=== PATIENT | male | born 2005 | race Caucasian/White ===

== ENCOUNTER 2024-02-25 06:55 | Outpatient (CLI) | payer OTHER, SELFPAY ==
--- NOTE | 2024-02-25 07:15 | MR_ITS ---
[facility] [address] [facility] [address] Phone:?[phone] Fax:?[phone] Referring Physician Information: Petra Dietrich [address] [facility] [address] Phone:?[phone] Fax:?[phone] Patient:Aleksandr Rivera D.O.B:?2005 Sex:?Male Phone:?[phone] [facility] MRN:?[id number] Exam Date:?02/25/2024 EXAM: MRI of the RIGHT FINGER, without contrast CLINICAL INFORMATION: Male, 18 years old, with frisbee collision injury INDICATION: evaluate for UCL tear PRIOR SURGERY: None reported. PLAIN FILMS: Radiographs COMPARISONS: No prior MRIs available. TECHNICAL INFORMATION: Using a 1.5T MR scanner and a localizing surface coil: sagittals: PD, T2 coronals: PD, T2, T1, STIR axials: PD, T2, STIR SEDATION: None. CONTRAST: None. FINDINGS: Bones: Prominent appearance of marrow edema seen in the thumb metacarpal head predominantly volarly. No discrete fracture line. Joints: Intact throughout without pathologic narrowing or effusion. Tendons: Flexor and extensor tendons are intact, without rupture or tendinopathy, tenosynovitis or longitudinal splitting. Collateral ligaments: There is full-thickness disruption of the thumb MCP joint ulnar collateral ligament at the distal attachment on the base of the proximal phalanx, with proximal retraction (coronal series 5 image 9 & 10). There is interposition of the adductor pollicis aponeurosis between the torn ulnar collateral ligament in the MCP joint (coronal series 6.1 image 9). Moderate overlying soft tissue edema/hemorrhage. The radial collateral ligament is intact. The radial and ulnar collateral ligaments of the interphalangeal joint are intact. Soft tissues: Moderate soft tissue edema/swelling about the thumb MCP joint. IMPRESSION: 1. Full-thickness tearing and retraction of the thumb MCP joint ulnar collateral ligament with resulting Stener lesion. 2. Prominent marrow edema/contusion of the thumb metacarpal head, suggestive for osseous contusion. No discrete fracture line. 3. Moderate soft tissue edema/swelling about the thumb MCP joint. KME Electronically signed on 02/25/2024 12:14:00 PM by Shireen Medrano M.D.
--- NOTE | 2024-02-25 08:15 | MR_ITS ---
[facility] [address] [facility] [address] Phone:?[phone] Fax:?[phone] Referring Physician Information: Petra Dietrich [address] [facility] [address] Phone:?[phone] Fax:?[phone] Patient:Aleksandr Rivera D.O.B:?2005 Sex:?Male Phone:?[phone] [facility] MRN:?[id number] Exam Date:?02/25/2024 EXAM: MRI of the LEFT THUMB, without contrast CLINICAL INFORMATION: Male, 18 years old, with frisbee collision injury INDICATION: evaluate for UCL tear PRIOR SURGERY: None reported. PLAIN FILMS: Radiographs 02/15/2024 COMPARISONS: No prior MRIs available. TECHNICAL INFORMATION: Using a 1.5T MR scanner and a localizing surface coil: sagittals: PD, T2 coronals: PD, T2, T1, STIR axials: PD, T2, STIR SEDATION: None. CONTRAST: None. FINDINGS: Bones: Prominent appearance of marrow edema seen in the thumb metacarpal head trauma minimally volarly. No discrete fracture. Joints: Intact throughout without pathologic narrowing or effusion. Tendons: Flexor and extensor tendons are intact, without rupture or tendinopathy, tenosynovitis or longitudinal splitting. Collateral ligaments: Mild irregularity and heterogeneity of the thumb MCP joint ulnar collateral ligament distally (coronal series 6.1 image 7-5), without high- grade or full-thickness tearing. There is slightly attenuated and irregular appearance of the overlying adductor pollicis aponeurosis, in keeping with mild strain. No evidence for interposition of the aponeurosis between the ligament and the MCP joint, however. The radial collateral ligament of the thumb MCP joint is intact. The radial and ulnar collateral ligaments of the thumb IP joint are intact. Soft tissues: Mild soft tissue edema/inflammation about the thumb MCP joint. IMPRESSION: 1. Mild thumb adductor pollicis aponeurosis strain with mild sprain of the thumb MCP UCL distally, without high-grade tear or Stener lesion. 2. Prominent marrow edema/contusion of the thumb metacarpal head. No discrete fracture line. 3. Mild soft tissue edema/inflammation about the thumb MCP joint. KME Electronically signed on 02/25/2024 12:37:00 PM by Shireen Medrano M.D.
== END 2024-02-25 06:56 | disposition home or self-care (01) ==
PROVIDERS: Visit Provider Physician Assistant Surgical
DX: S63.641A Sprain of metacarpophalangeal joint of right thumb, initial encounter (principal); S63.622A Sprain of interphalangeal joint of left thumb, initial encounter; S63.602A Unspecified sprain of left thumb, initial encounter; S63.681A Other sprain of right thumb, initial encounter; S60.011A Contusion of right thumb without damage to nail, initial encounter; M25.441 Effusion, right hand
CPT/HCPCS: 73218

== ENCOUNTER 2024-12-09 09:03 | Outpatient (CLI) | payer OTHER, SELFPAY ==
--- NOTE | 2024-12-09 09:15 | CRLHL7_ITS ---
For Patients: As a result of the Century Cures Act, medical imaging exams and procedure reports are released immediately into your electronic medical record. You may view this report before your referring provider. If you have questions, please contact your health care provider. Indication: eval left hip labral tear ,LEFT HIP PAIN Comparison: 11/23/2024 Procedure : Informed consent was obtained. The site was marked. Time-out was performed. The skin of the left hip was cleansed with ChloraPrep. A sterile drape was placed. 8 cc of 1 percent lidocaine was administered for superficial anesthesia. Subsequently a 22 gauge spinal needle was introduced into the left hip joint under intermittent fluoroscopic guidance. Injection of 2 cc nonionic Omnipaque 240 contrast confirmed intra-articular location. Subsequently 11 cc of dilute gadolinium were injected. The needle was removed and hemostasis achieved with direct pressure. A dressing was placed. The patient tolerated the procedure well without immediate complication and was immediately sent to MRI for imaging. Total fluoroscopy time 15 seconds. Impression: Successful fluoroscopically guided left hip arthrogram for MRI. Dictated by Shmuel Pugh MD @ 12/09/2024 12:57:38 PM (Electronically Signed)
--- NOTE | 2024-12-09 10:15 | MR_ITS ---
[address] [address] Phone:?[phone] Fax:?[phone] Referring Physician Information: Raul Kent M.D. [address] [address] Phone:?[phone] Fax:?[phone] Patient:Aleksandr Rivera D.O.B:?2005 Sex:?Male Phone:?[phone] [facility] MRN:?[id number] Exam Date:?12/09/2024 EXAM: MR ARTHROGRAM of the LEFT HIP CLINICAL HISTORY: Ongoing left hip pain. Potential labral tear. COMPARISONS: Plain radiographs 11/23/2024. TECHNIQUE: MR sequences of the left hip: coronals: PD, T2, T1FS sagittals: PD, T2, T1FS axial obliques: PD axials: PD FS coronals of pelvis: T1, STIR This study was not available for interpretation until approximately 10:00 AM 12/14/2024. Sedation: None Contrast: Intra-articular gadolinium based contrast. The injection procedure is reported separately. FINDINGS: Pelvis osseous structures: Sacrum: No fracture or destructive osseous lesion is seen of the imaged portions of the sacrum. Sacroiliac joints: No convincing evidence of sacroiliitis of the imaged portions of the sacroiliac joints. Pubic rami: Unremarkable. Symphysis pubis: There is subchondral edema-like signal within the left pubic body adjacent to the symphysis pubis and subchondral edema-like signal within the right pubic body to a lesser extent. There is a left-sided secondary cleft sign. Labrum: Slitlike linear tear within the base of the left hip labrum from the 1 o'clock position through 2 o'clock position anterosuperiorly best seen on axial oblique images 12 through 14 and sagittal series 10 images 17 through 14. Hip joint: The presence of contrast reflects intra-articular injection. No discrete chondral loss is seen. No degenerative subchondral cystic change or degenerative subchondral edema-like signal is seen. Proximal femur: No fracture, osseous stress injury, avascular necrosis, or suspicious bone marrow signal abnormality is seen. Fibrocystic changes at the lateral femoral head neck junction. Marked left femoral cam morphology with a femoral alpha angle of 93 degrees at the 12 o'clock position superiorly best seen on coronal series 7 image 17. Acetabulum: No subchondral cysts, periacetabular ossicles or marrow edema. Coverage: Left lateral center edge (CE) angle measures approximately 39? correcting for coronal pelvic tilt, midline coronal series 7 image 17. Ligamentum teres: Unremarkable. Myotendinous structures: Gluteus abductors: The gluteus minimus and medius tendons are unremarkable. Rectus abdominis-adductor longus aponeurosis, adductors, and rectus abdominis: There is a left-sided secondary clot sign. There is also slight peritendinitis involving the left adductor longus tendon origin. Hamstrings: Unremarkable. Flexors: A small amount contrast is seen within the left iliopsoas bursa. The left rectus femoris and iliopsoas tendons are intact. Quadratus femoris muscle: Unremarkable. Gluteal aponeurotic fascia and IT band: Unremarkable. Piriformis muscle: Unremarkable. Pelvic soft tissues: Unremarkable. IMPRESSION: 1. Slitlike linear tear within the base of the left hip labrum from the 1 o'clock position through 2 o'clock position anterosuperiorly. No left hip chondral loss. No subchondral cystic change/subchondral edema-like signal. 2. 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 3. Marked left femoral cam morphology. Upper limits of normal/borderline increased left acetabular lateral center edge angle of 39 degrees measured on a midline coronal image. 4. 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 Left-sided secondary cleft sign reflecting short adductor attachment microtearing. Additionally, slight paratendinitis involving the left adductor longus tendon origin. RCB Electronically signed on 12/14/2024 10:31:00 AM by Chip Tom M.D.
== END 2024-12-09 09:04 | disposition home or self-care (01) ==
PROVIDERS: Visit Provider Orthopaedic Surgery Sports Medicine
DX: M25.552 Pain in left hip (principal)
CPT/HCPCS: 27093; 73525; 73722; A9575; Q9966

== ENCOUNTER 2025-03-03 08:50 | Outpatient (CLI) | payer OTHER, SELFPAY ==
--- NOTE | 2025-03-03 09:15 | CRLHL7_ITS ---
For Patients: As a result of the Century Cures Act, medical imaging exams and procedure reports are released immediately into your electronic medical record. You may view this report before your referring provider. If you have questions, please contact your health care provider. Indication: Right hip pain Procedure : Informed consent was obtained. The site was marked. Time-out was performed. The skin of the right hip was cleansed with ChloraPrep. A sterile drape was placed. 8 cc of 1 percent lidocaine was administered for superficial anesthesia. Subsequently a 22 gauge spinal needle was introduced into the right hip joint under intermittent fluoroscopic guidance. Injection of 2 cc nonionic Omnipaque 240 contrast confirmed intra-articular location. Subsequently 11 cc of dilute gadolinium were injected. The needle was removed and hemostasis achieved with direct pressure. A dressing was placed. The patient tolerated the procedure well without immediate complication and was immediately sent to MRI for imaging. Total fluoroscopy time 15 seconds. Impression: Successful fluoroscopically guided right hip arthrogram for MRI. Dictated by Shmuel Pugh MD @ 03/03/2025 10:43:52 AM (Electronically Signed)
--- NOTE | 2025-03-03 10:15 | CRLHL7_ITS ---
For Patients: As a result of the Century Cures Act, medical imaging exams and procedure reports are released immediately into your electronic medical record. You may view this report before your referring provider. If you have questions, please contact your health care provider. EXAM: MRI OF THE RIGHT HIP, ARTHROGRAM CLINICAL INDICATION: Right hip pain. COMPARISON PLAIN FILMS: 11/23/2024. COMPARISON CROSS-SECTIONAL IMAGING STUDIES: 12/09/2024 MR arthrogram left hip. TECHNICAL: Axial, sagittal and coronal PD FS small field of view images of the hip following intra-articular injection of dilute gadolinium contrast. Coronal T1, PD FS and axial T1 images of the pelvis. FINDINGS: RIGHT HIP: Labrum: No labral tear or paralabral cyst. Articular Cartilage: Articular surfaces are smooth without focal chondral defect or subchondral marrow changes. Joint Space: No synovitis or loose body. Proximal Femoral Morphology: Broadening of the lateral femoral head neck junction can be associated with cam type impingement. Acetabular Morphology: No focal or global retroversion. No significant overcoverage. LEFT HIP: Interval femoral osteochondroplasty and postoperative changes in the labrum. Small hip joint effusion. OSSEOUS STRUCTURES: No fracture, marrow edema or marrow replacement process. No evidence for avascular necrosis. MUSCULOTENDINOUS STRUCTURES AND BURSAE: Gluteus Minimus and Medius: No tendon tear or tendinopathy. No muscle atrophy or edema. Bursae: No trochanteric or iliopsoas bursitis. Common Hamstrings: No tendon tear or tendinopathy. Other: Tendons and myotendinous junctions are intact. No muscle atrophy or edema. SOFT TISSUES: No subcutaneous edema, hematoma or fluid collection. OTHER JOINTS: Sacroiliac joints are maintained. Pubic symphysis is maintained. INTRAPELVIC CONTENTS: No mass, fluid collection or adenopathy. No inguinal hernia. NEUROVASCULAR STRUCTURES: No abnormality involving the visualized proximal femoral or proximal sciatic nerves. No aneurysmal dilation of the visualized distal aorta or iliac arterial circulation. IMPRESSION: 1. Broadening of the right lateral femoral head neck junction can be associated with cam type impingement. 2. No right labral tear or chondral abnormality. 3. Interval left femoral osteochondroplasty and left labral repair. Dictated by Douglas Bazan MD @ 03/03/2025 3:39:15 PM (Electronically Signed)
== END 2025-03-03 08:51 | disposition home or self-care (01) ==
LOC: RAD 08:51
PROVIDERS: Visit Provider Orthopaedic Surgery Sports Medicine
DX: M25.551 Pain in right hip (principal)
CPT/HCPCS: 27093; 73525; 73722; 77002; A9575; Q9966